=== PATIENT | female | born 1965 | race Caucasian/White ===

== ENCOUNTER → 2016-11-07 | Outpatient (CLI) | payer BC ==
[~2016-11-07] MED LIST: LOVA10TA PO; TPR25T PO; WARF7.5T PO
--- NOTE | 2016-11-07 14:30 | Diagnostic Imaging Report ---
EXAMINATION: Three views of the left shoulder. INDICATION: Trauma. FINDINGS: There is no fracture, dislocation, or radiopaque foreign body. There is acromioclavicular osteoarthritis with prominent inferior osteophytes. The glenohumeral joint appears unremarkable. IMPRESSION: Acromioclavicular joint osteoarthritis with prominent inferior osteophytes. Dictated by: Dictated on workstation # [id number]
== END ==
LOC: RAD 13:58
PROVIDERS: ATTEND Internal Medicine
DX: S49.92XA Unspecified injury of left shoulder and upper arm, initial encounter (principal); M19.012 Primary osteoarthritis, left shoulder; W19.XXXA Unspecified fall, initial encounter; Y92.019 Unspecified place in single-family (private) house as the place of occurrence of the external cause; Y99.8 Other external cause status
CPT/HCPCS: 73030

== ENCOUNTER → 2016-11-22 | Outpatient (CLI) | payer BC ==
--- NOTE | 2016-11-22 18:04 | Diagnostic Imaging Report ---
PROCEDURE: MRI left upper extremity without contrast. TECHNIQUE: Multiplanar, multisequence non contrast-enhanced MRI of the left upper extremity was accomplished. INDICATION: Shoulder pain. FINDINGS: There are no previous MRI examinations available for comparison. The plain film examination of the left shoulder performed on 11/07/2016 failed to show any evidence for an acute abnormality. There was acromioclavicular osteoarthritis, however. On the T2 coronal fat-saturated series of this exam, there is an irregular linear area of increased signal extending along the anterior-most insertion of the rotator cuff. Most likely, this represents a small rim rent tear. The supraspinatus muscle in this area is slightly bunched, but the supraspinatus muscle is not retracted. As suggested on the plain film exam, there is hypertrophy of the acromioclavicular joint, and this does result in narrowing of the outlet for the supraspinatus muscle. The biceps tendon and the subscapularis tendon are intact. The labrum is thinned centrally and torn on a degenerative basis. On the coronal fat-saturated series, there is a vague area of slightly increased signal within the substance of the humeral head. This may be secondary to mild bone edema from a recent contusion. There is no fracture identified. There is no sign of a joint effusion. IMPRESSION: 1. There is a rim rent tear along the anterior insertion of the rotator cuff. The supraspinatus muscle in this area is bunched, but the supraspinatus muscle is not retracted. 2. There is narrowing of the outlet for the supraspinous muscle due to acromioclavicular hypertrophy. 3. The labrum is thinned centrally and torn on a degenerative basis. 4. The vague area of altered signal within the humeral head may be secondary to bone edema from a recent contusion. There is no fracture identified. Dictated by: Dictated on workstation # [id number]
== END ==
LOC: RAD 15:40
PROVIDERS: ATTEND Internal Medicine
DX: S46.012A Strain of muscle(s) and tendon(s) of the rotator cuff of left shoulder, initial encounter (principal); X58.XXXA Exposure to other specified factors, initial encounter; Y99.8 Other external cause status
CPT/HCPCS: 73221

== ENCOUNTER → 2017-02-05 | Outpatient (CLI) | payer BC ==
[~2017-02-05] MED LIST changes: +CATHETER FLUSH 10 ML SYR IV PRN; +IOHEXOL 350 MG/ML 100 ML (OMNIPAQUE 350) VIAL IV ONE; +NS 100 ML (IVPB) BAG IV ONE
[2017-02-05 12:03] LABS: ANION GAP 9 MMOL/L (5-14); BLOOD UREA NITROGEN 13 MG/DL (7-18); BUN/CREATININE RATIO 17; CALCIUM 9.1 MG/DL (8.5-10.1); CARBON DIOXIDE 25 MMOL/L (21-32); CHLORIDE 106 MMOL/L (98-107); CREATININE SERUM 0.76 MG/DL (0.60-1.30); GFR ESTIMATED > 60; GLUCOSE 92 MG/DL (70-105); POTASSIUM 4.5 MMOL/L (3.6-5.0); SODIUM 140 MMOL/L (135-145)
--- NOTE | 2017-02-05 13:29 | Diagnostic Imaging Report ---
PROCEDURE: CT abdomen and pelvis with contrast. TECHNIQUE: Multiple contiguous axial images were obtained through the abdomen and pelvis after administration of intravenous contrast. Additional dedicated venous phase was performed to better evaluate the IVC. INDICATION: Evaluation of IVC filter placed in 2006. FINDINGS: There is an IVC filter in good position below the renal veins and above the iliac bifurcation. The IVC, the iliac veins, and the renal veins are all patent with no thrombus seen. One of the limbs of the filter demonstrates an area of disconnection or fractures along its posterior aspect. This is best seen on coronal image 56 series 4. The filter limbs appear to stretch the IVC in this location, and although they appear to project into the adjacent soft tissues, they are probably incorporated in the wall without definitive migration outside the IVC. This is probably a [employer]-type filter. The abdominal aorta is normal in caliber. The lung bases appear clear. The heart size is normal. Hypodense lesion in the left hepatic lobe anteriorly measuring 7 mm and another lesion measuring 9 mm in the anterior aspect of the right hepatic lobe. When compared with 10/04/2014 exam, these lesions are seen suggestive of a benign etiology such as hepatic cysts. The gallbladder demonstrates no calcified stone. The spleen is not enlarged. The pancreas and the adrenals appear unremarkable. The kidneys have symmetric enhancement and contrast excretion. There is no hydronephrosis. There is no significant free fluid or fluid collection in the abdomen or pelvis seen. No bowel obstruction. There is a tiny hiatal hernia. The osseous structures demonstrate degenerative changes at L5/S1. IMPRESSION: An infrarenal IVC filter is seen in good position. There is no thrombus formation, stenosis, or occlusion in the IVC. The limbs of the filter appear to project towards the retroperitoneal fat around the IVC. These are probably still within the IVC wall which is stretched at the location of the limbs from the radial force of the filter with no definite displacement of these limbs outside the IVC. There is fracture of one of the posterior limbs seen without significant displacement. Dictated by: Dictated on workstation # [id number]
== END ==
LOC: RAD 11:28
PROVIDERS: ATTEND Internal Medicine
DX: Z09 Encounter for follow-up examination after completed treatment for conditions other than malignant neoplasm (principal); Z96.89 Presence of other specified functional implants
CPT/HCPCS: 36415; 74177; 80048

== ENCOUNTER → 2017-07-11 | Outpatient (CLI) | payer BC ==
[~2017-07-11] MED LIST changes: -CATHETER FLUSH 10 ML SYR IV PRN; -IOHEXOL 350 MG/ML 100 ML (OMNIPAQUE 350) VIAL IV ONE; -NS 100 ML (IVPB) BAG IV ONE
--- NOTE | 2017-07-12 18:05 | Diagnostic Imaging Report ---
Bilateral screening mammogram 2D views with tomosynthesis. The current study was also evaluated with a Computer Aided Detection (CAD) system. INDICATION: Screening. No current complaints stated on the questionnaire. COMPARISON: 07/09/16. FINDINGS: The breasts are composed of scattered fibroglandular densities. There are benign-appearing calcifications seen. Allowing for technique and positional differences, no suspicious change is seen. IMPRESSION: No significant change. ACR BI-RADS Category 2: Benign findings. Result letter will be mailed to the patient. Note: At least 10% of breast cancer is not imaged by mammography. Dictated on workstation # [id number]
== END ==
LOC: RAD 12:43
PROVIDERS: ATTEND Obstetrics & Gynecology
DX: Z12.31 Encounter for screening mammogram for malignant neoplasm of breast (principal)
CPT/HCPCS: 77067

== ENCOUNTER → 2021-01-02 | Outpatient (CLI) | payer BC, OTHER | LOC: RAD 11:30 | PROVIDERS: ATTEND Nurse Practitioner | DX: Z12.31 Encounter for screening mammogram for malignant neoplasm of breast (principal) | CPT/HCPCS: 77063; 77067 ==

== ENCOUNTER → 2022-01-03 | Outpatient (CLI) | payer OTHER ==
--- NOTE | 2022-01-04 09:19 | Diagnostic Imaging Report ---
INDICATION: Routine screening. COMPARISON is made with prior mammogram from 01/02/2021 and 09/23/2019. 2-D and 3-D bilateral screening mammography was performed with CAD. Scattered fibroglandular densities are identified bilaterally. Benign nodules in both breasts are stable. Benign parenchymal and vascular calcifications are similar. No spiculated mass or malignant-appearing microcalcifications are seen. Axillae are unremarkable. IMPRESSION: BI-RADS Category 2 No mammographic features suspicious for malignancy are identified. ACR BI-RADS Category 2: Benign findings. Result letter will be mailed to the patient. Note: At least 10% of breast cancer is not imaged by mammography. Dictated by: Dictated on workstation # [id number]
== END ==
LOC: RAD 14:45
PROVIDERS: ATTEND Nurse Practitioner
DX: Z12.31 Encounter for screening mammogram for malignant neoplasm of breast (principal)
CPT/HCPCS: 77063; 77067

== ENCOUNTER → 2023-01-08 | Outpatient (CLI) | payer OTHER ==
--- NOTE | 2023-01-08 14:58 | Diagnostic Imaging Report ---
Indication: Routine screening. Comparison is made with prior mammograms 01/03/2022 and 01/02/2021. 2-D and 3-D bilateral screening mammography was performed with CAD. Scattered fibroglandular densities are identified bilaterally. Benign nodules in both breasts are stable. There are benign calcifications bilaterally. No spiculated mass or malignant-appearing microcalcifications are seen. Axillae are unremarkable. IMPRESSION: BI-RADS Category 2 No mammographic features suspicious for malignancy are identified. ACR BI-RADS Category 2: Benign findings. Result letter will be mailed to the patient. Note: At least 10% of breast cancer is not imaged by mammography. Dictated by: Dictated on workstation # [id number]
== END ==
LOC: RAD 12:22
PROVIDERS: ATTEND Surgery
DX: Z12.31 Encounter for screening mammogram for malignant neoplasm of breast (principal)
CPT/HCPCS: 77063; 77067